=== PATIENT | female | born 1940 | race Caucasian/White ===

== ENCOUNTER 2019-12-05 09:11 | Emergency (ER) | payer OTHER ==
[~2019-12-05] VITALS: Ht 149.9 cm; Wt 54.4 kg
[2019-12-05] MEDS ORDERED: GLIMEPIRIDE4 MG (09:30)
[2019-12-05] MEDS ORDERED: HUMULIN N100 UNIT/2 (09:31)
[2019-12-05] MEDS ORDERED: ALTACE2.5 MG (09:32)
== END 2019-12-05 16:33 | disposition home or self-care (01) ==
LOC: ER 09:11 → EDBD 09:36 → ER 16:33
DX: K52.89 Other specified noninfective gastroenteritis and colitis (principal); R10.31 Right lower quadrant pain